=== PATIENT | male | born 2000 | race Hispanic/Latino ===

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

== ENCOUNTER 2024-04-23 14:39 | Emergency (ER) | payer BC ==
--- OUTSIDE RECORDS SUMMARY | 2024-04-23 14:43 | XMS REPORT | Continuity of Care Document ---
Author Name Unknown Address [address] [facility] [address] [place] [address] Organization [facility] Address [address] [place] [address] Care Team Providers Care Stone Gang Sawyer Name Role Phone NADER GALLAGHER Attending Clinician Unavailab cason LAB90 Attending Clinician Unavailable DANETTE CONLEY Attending Clinician Unavailable MONIKA BUCHANAN Attending Clinician Unavailable PATRICK GRIFFIN Attending Clinician Unavailable Nurse, Clau Dietrich Attending Clinician Unavailable Patrick Griffin MD Attending Clinician [phone] Anisha De Jesus MD Attending Clinician [phone] EFFIE LEVINE Attending Clinician Unavailable DEREK ACUNA Attending Clinician Unavailable WINIFRED NASCIMENTO Attending Clinician Unavailab SHANTANU Fofana Attending Clinician UnavailBENITA Chiu Attending Clinician SULEIMAN Natarajan Attending Clinician Unavailable NO PHYSICIAN, . Attending Clinician Unavailable BENITA BAH Admitting Clinician SULEIMAN Natarajan Admitting Clinician Unavailable Payers Payer Name Policy Type Policy Number Effective Date Expirati on Date Source [facility] 2 [id number] 2022 00:00:00 [facility] [id number] [facility] [id number] 2018 00:00:00 Problems Condition Name Condition Details Condition Category Status Onset Date Resolution Date Last Treatment Date Treating Clinician Comments Source No known active problems No known active problems Disease [facility] [id number] Cyst of epididymis determined by ultrasound Problem [facility] Allergies, Adverse Reactions, Alerts Allergy Name Allergy Type Status Severity Reaction(s) Onset Date Inactive Date Treating Clinician Comments Source NO KNOWN ALLERGIE S Drug Class Active [facility] Social History Social Habit Start Date Stop Date Quantity Comments Source Sexual orientation 2023-09-26 15:46:40 Heterosexual (finding) Dorita Solitario - External History of Tobacco Use [facility] Gender identity Mikayla Solitario - External Alcoholic beverage intake 2023-12-09 00:00:00 2023-12-09 00:00:00 Lifetime non-drinker (finding) Dorita Solitario - External Alcohol intake 2022-12-20 00:00:00 2022-12-20 00:00:00 Lifetime non-drinker (finding) Dorita Solitario - External Tobacco use and exposure 2022-09-27 00:00:00 2022-09-27 00:00:00 Smokeless tobacco non-user Dorita Solitario - External History of Social function 2022-09-27 00:00:00 2022-09-27 00:00:00 Dorita Solitario - External Sex 2022-08-30 14:31:55 2022-08-30 14:31:55 Male (finding) Dorita Solitario - External Sex assigned at 2002 00:00:00 2000 00:00:00 M Dorita Solitario - External Smoking Status Start Date Stop Date Source Never smoked tobacco Dorita Solitario - External Medications Ordered Medication Name Filled Medication Name Start Date Stop Date Current Medication? Ordering Clinician Indication Dosage Frequency Signature (SIG) Comments Components Source Triamcinolo ne Acetonide 0.1 % apply externally Cream 2022-02 00:00: 00 01-18 05:59 :00 No [id number] Apply to area nightly. Dorita Solitario - Externa l Zenatane 30 MG oral Capsule 2023-1 0-16 00:00: 00 12-08 00:00 :00 No Dorita Seybold - Externa l permethrin 5 % cream 2017-02 00:00: 00 Yes AAA qhs head to toe and leave overnight, rinse in the am just for one treatment, repeat again in 1 week [facility] hydrocortis one 2.5 % cream 2017-02 00:00: 00 Yes Apply to area(s) 3 (three) times daily. As needed for itch [facility] adapalene-b enzoyl peroxide (EPIDUO FORTE) 0.3-2.5 % GlwP 2017-02 00:00: 00 Yes 1{dose} Apply 1 Dose to area(s) at bedtime. AAA qhs for acne [facility] Minocycline HCl 50 MG Minocycline HCl 50 MG No 1{capsu le} QD Minocyclin e HCl 50 MG Immunizations Ordered Immunization Name Filled Immunization Name Date Status Comments Source [facility] 2019-07-16 00:00:00 Completed [facility] 2019-04-05 00:00:00 Completed [facility] HPV9 2019-04-05 00:00:00 Completed [facility] Meningococcal Polysaccharide (groups A, C, Y and W-135) conjugate vaccine (MCV4P) 2018-12-31 00:00:00 Completed [facility] Meningococcal B, OMV 2018-12-31 00:00:00 Completed [facility] HPV9 2018-12-31 00:00:00 Completed [facility] Meningococcal Polysaccharide (groups A, C, Y and W-135) conjugate vaccine (MCV4P) 2018-12-31 00:00:00 Completed [facility] Meningococcal B, OMV 2018-12-31 00:00:00 Completed [facility] HPV9 2018-12-31 00:00:00 Completed [facility] Influenza Virus Vaccine Quad .5 mL IM 6+ MO 2018-12-08 00:00:00 Completed [facility] Influenza Virus Vaccine Quad .5 mL IM 6+ MO 2018-12-08 00:00:00 Completed [facility] Influenza Virus Vaccine Quad IM 6-35 MO 2018-01-20 00:00:00 Completed [facility] Influenza Virus Vaccine Quad .5 mL IM 6+ MO 2018-01-20 00:00:00 Completed [facility] Influenza Virus Vaccine Quad IM 6-35 MO 2018-01-20 00:00:00 Completed [facility] Influenza Virus Vaccine Quad .5 mL IM 6+ MO 2018-01-20 00:00:00 Completed [facility] Meningococcal Polysaccharide (groups A, C, Y and W-135) conjugate vaccine (MCV4P) 2014-10-10 00:00:00 Completed [facility] Meningococcal Polysaccharide (groups A, C, Y and W-135) conjugate vaccine (MCV4P) 2014-10-10 00:00:00 Completed [facility] DTAP 2014-10-05 00:00:00 Completed [facility] DTAP 2014-10-05 00:00:00 Completed [facility] DTAP 2007-03-23 00:00:00 Completed [facility] HEPATITIS A 2007-03-23 00:00:00 Completed [facility] Polio (IPV/OPV) 2007-03-23 00:00:00 Completed [facility] Proquad (MMR/VARICELLA) 2007-03-23 00:00:00 Completed [facility] DTAP 2007-03-23 00:00:00 Completed [facility] HEPATITIS A 2007-03-23 00:00:00 Completed [facility] Polio (IPV/OPV) 2007-03-23 00:00:00 Completed [facility] Proquad (MMR/VARICELLA) 2007-03-23 00:00:00 Completed [facility] HEPATITIS A 2005-10-01 00:00:00 Completed [facility] HEPATITIS A 2005-10-01 00:00:00 Completed [facility] Influenza Virus Vaccine Quad IM 6-35 MO 2005-01-16 00:00:00 Completed [facility] Influenza Virus Vaccine Quad IM 6-35 MO 2005-01-16 00:00:00 Completed [facility] Pneumococcal 13 Conjugate, PCV13 (Prevnar 13) 2004-11-16 00:00:00 Completed [facility] Proquad (MMR/VARICELLA) 2004-11-16 00:00:00 Completed [facility] Pneumococcal 13 Conjugate, PCV13 (Prevnar 13) 2004-11-16 00:00:00 Completed [facility] Proquad (MMR/VARICELLA) 2004-11-16 00:00:00 Completed [facility] DTAP 2003-11-12 00:00:00 Completed [facility] DTAP 2003-11-12 00:00:00 Completed [facility] HIB 4 Dose Schedule 2003-11-10 00:00:00 Completed [facility] HIB 4 Dose Schedule 2003-11-10 00:00:00 Completed [facility] DTAP 2003-03-24 00:00:00 Completed [facility] HIB 4 Dose Schedule 2003-03-24 00:00:00 Completed [facility] Hep B, Adol or Pedi Dosage 2003-03-24 00:00:00 Completed [facility] Pneumococcal 13 Conjugate, PCV13 (Prevnar 13) 2003-03-24 00:00:00 Completed [facility] DTAP 2003-03-24 00:00:00 Completed [facility] HIB 4 Dose Schedule 2003-03-24 00:00:00 Completed [facility] Hep B, Adol or Pedi Dosage 2003-03-24 00:00:00 Completed [facility] Pneumococcal 13 Conjugate, PCV13 (Prevnar 13) 2003-03-24 00:00:00 Completed [facility] DTAP 2002 00:00:00 Completed [facility] Pneumococcal 13 Conjugate, PCV13 (Prevnar 13) 2002 00:00:00 Completed [facility] Polio (IPV/OPV) 2002 00:00:00 Completed [facility] DTAP 2002 00:00:00 Completed [facility] Pneumococcal 13 Conjugate, PCV13 (Prevnar 13) 2002 00:00:00 Completed [facility] Polio (IPV/OPV) 2002 00:00:00 Completed [facility] Polio (IPV/OPV) 2002 00:00:00 Completed [facility] Polio (IPV/OPV) 2002 00:00:00 Completed [facility] DTAP 2002 00:00:00 Completed [facility] Pneumococcal 13 Conjugate, PCV13 (Prevnar 13) 2002 00:00:00 Completed [facility] Polio (IPV/OPV) 2002 00:00:00 Completed [facility] DTAP 2002 00:00:00 Completed [facility] Pneumococcal 13 Conjugate, PCV13 (Prevnar 13) 2002 00:00:00 Completed [facility] Polio (IPV/OPV) 2002 00:00:00 Completed [facility] HIB 4 Dose Schedule 2002 00:00:00 Completed [facility] Hep B, Adol or Pedi Dosage 2002 00:00:00 Completed [facility] HIB 4 Dose Schedule 2002 00:00:00 Completed [facility] Hep B, Adol or Pedi Dosage 2002 00:00:00 Completed [facility] HIB 4 Dose Schedule 2002 00:00:00 Completed [facility] Hep B, Adol or Pedi Dosage 2002 00:00:00 Completed [facility] HIB 4 Dose Schedule 2002 00:00:00 Completed [facility] Hep B, Adol or Pedi Dosage 2002 00:00:00 Completed [facility] HPV 9 (Human Papillomavirus) Unknown Completed Dorita pyle - External HPV 9 (Human Papillomavirus) Unknown Completed Dorita pyle - External Influenza Virus Vaccine, No Preserv, age 6 months and up Unknown Completed Dorita jaquez - External Influenza Virus Vaccine, Split, Preservative Free, up to age 3 Unknown Completed Dorita Feliciano External Meningococcal Vaccine- Conjugate(Menactra) Unknown Completed Dorita Feliciano External MMR- Measles, Mumps, Rubella Unknown Completed Dorita Solitario - External Bexsero (Meningococcal Group B) Unknown Completed Dorita Feliciano External Meningococcal Vaccine- Conjugate(Menactra) Unknown Completed Dorita jaquez - External Pneumococcal Vaccine, Conjugate 13 Unknown Completed Dorita Feliciano External Polio Vaccine Unknown Completed Dorita Feliciano External IPV- Inactivated Polio Vaccine Unknown Completed Dorita Woodardybold - External MMR/Varicella (ProQuad) [facility]ine [facility] Completed Alvarado coleen Seybold - External DTaP Unknown Completed Dorita pardo - External Hepatitis B, Adolescent Or Pediatric Unknown [facility] HEPATITIS A- PEDI/ADOL Unknown [facility] - [facility] Tetanus Toxoid/HIB Unknown Completed Thierry gonzales Seybold - External HPV 9 (Human Papillomavirus) Unknown Completed [facility] - External HPV 9 (Human Papillomavirus) Unknown Completed [facility] - External Influenza Virus Vaccine, No Preserv, age 6 months and up Unknown Completed [facility] eybold - External Influenza Virus Vaccine, Split, Preservative Free, up to age 3 Unknown Completed [facility] - External Meningococcal Vaccine- Conjugate(Menactra) Unknown Completed [facility] eybold - External MMR- Measles, Mumps, Rubella Unknown [facility] Bexsero (Meningococcal Group B) Unknown Completed [facility] - External Pneumococcal Vaccine, Conjugate 13 Unknown Com[facility] - External Polio Vaccine Unknown Completed [facility] - External IPV- Inactivated Polio Vaccine Unknown Com[facility] - External MMR/Varicella (ProQuad) Unknown Com[facility] - External Varicella Vaccine Unknown Completed Alvarado coleen Seybold - External DTaP Unknown Completed Dorita pardo - External Hepatitis B, Adolescent Or Pediatric Unknown Completed Dorita ybold - External HEPATITIS A- PEDI/ADOL Unknown [facility] Tox[facility]/HIB Unknown Completed [facility]ales [facility] - External HPV 9 (Human Papillomavirus) Unknown Completed [facility] - External HPV 9 (Human Papillomavirus) Unknown Completed Dorita [facility] - External Influenza Virus Vaccine, No Preserv, age 6 months and up Unknown Completed [facility] eybold - External Influenza Virus Vaccine, Split, Preservative Free, up to age 3 Unknown Com[facility] - External Meningococcal Vaccine- Conjugate(Menactra) Unknown Completed [facility] eybold - External MMR- Measles, Mumps, Rubella Unknown Com[facility] - External Bexsero (Meningococcal Group B) Unknown Com[facility] - External Pneumococcal Vaccine, Conjugate 13 Unknown Completed Dorita Richold - External Polio Vaccine Unknown Completed Dorita Solitario - External IPV- Inactivated Polio Vaccine Unknown Completed Dorita [facility] - External MMR/Varicella (ProQuad) Unknown Completed Dorita [facility] - External Varicella Vaccine Unknown Completed Alvarado galvin Seybold - External DTaP Unknown Completed Dorita Viera bold - External Hepatitis B, Adolescent Or Pediatric Unknown Completed Dorita Solitario - External HEPATITIS A- PEDI/ADOL Unknown Completed Dorita Solitario - External Tetanus Toxoid/HIB Unknown Completed Thierry gonzales Seybold - External Vital Signs Vital Name Observation Time Observation Value Comments S ource Systolic blood pressure 2022-12-20 20:21:00 106 mm[Hg] Dorita Seybo ld - External Diastolic blood pressure 2022-12-20 20:21:00 56 mm[Hg] Dorita Woodardybo ld - External Heart rate 2022-12-20 20:21:00 71 /min Kelse y Seybold - External Body temperature 2022-12-20 20:21:00 36.39 Kalpana Dorita Seybold - External Respiratory rate 2022-12-20 20:21:00 14 /min Dorita Seybold - External Body height 2022-12-20 20:21:00 162.6 cm Mikayla ey Seybold - External Body weight 2022-12-20 20:21:00 62.143 kg Mikayla ey Seybold - External BMI 2022-12-20 20:21:00 23.52 kg/m2 Mikayla ey Seybold - External Systolic blood pressure 2022-09-27 21:19:00 90 mm[Hg] Dorita Seybo ld - External Diastolic blood pressure 2022-09-27 21:19:00 58 mm[Hg] Dorita Seybo ld - External Heart rate 2022-09-27 21:19:00 92 /min Kelse y Seybold - External Body temperature 2022-09-27 21:19:00 36.61 Kalpana Dorita Seybold - External Respiratory rate 2022-09-27 21:19:00 20 /min Dorita Seybold - External Body height 2022-09-27 21:19:00 162.6 cm Mikayla ey Seybold - External Body weight 2022-09-27 21:19:00 59.966 kg Mikayla ey Seybold - External BMI 2022-09-27 21:19:00 22.69 kg/m2 Mikayla Solitario - External Oxygen saturation in Arterial blood by Pulse oximetry 2022-09-27 21:19:00 98 /min Dorita Galvan ld - External height 2022-08-21 10:15:00 63 [in_i] Commo n [facility] weight 2022-08-21 10:15:00 138 [lb_av] Comm on [facility] temperature 2022-08-21 10:15:00 98.2 [degF] Com mon [facility] bmi 2022-08-21 10:15:00 24.44 kg/m2 Comm on [facility] oximetry 2022-08-21 10:15:00 100 % Commo n [facility] respiratory rate 2022-08-21 10:15:00 18 /min [facility] blood pressure systolic 2022-08-21 10:15:00 110 mm[Hg] [facility] blood pressure diastolic 2022-08-21 10:15:00 68 mm[Hg] [facility] Procedures Procedure Date / Time Performed Performing Clinicia n Source GARDASIL 9 (HPV 9V) VACCINE 2019-07-16 20:38:35 Patrick Griffin [facility] GARDASIL 9 (HPV 9V) VACCINE 2019-04-05 20:03:03 Anisha De Jesus [facility] Encounters Start Date/Time End Date/Time Encounter Type Admission Type Attending Clinicians Care Facility Care Department Encounter ID Source 2023-07-08 14:45:00 Outpatient STLC STLC [id number] [facility] 2022-08-21 09:44:00 Outpatient STLMLC STLMLC [id number] [facility] 2021-06-13 14:30:03 Outpatient STLC STLC [id number] [facility] 2021-03-14 13:56:20 Outpatient STLMLC STLMLC [id number] [facility] 2021-03-14 12:30:25 Outpatient STLMLC STLMLC [id number] [facility] 2024-01-09 00:00:00 2024-01-09 00:00:00 Outpatient NADER GALLAGHER DORITA UMANZOR [id number] [facility] 2023-12-09 11:30:00 2023-12-09 11:30:00 Outpatient NADER GALLAGHER DORITA UMANZOR [id number] [facility] 2023-09-26 16:30:00 2023-09-26 16:30:00 Outpatient LAB90 DORITA UMANZOR [id number] [facility] 2023-09-26 16:00:00 2023-09-26 16:00:00 Outpatient DANETTE CONLEY DORITA UMANZOR [id number] [facility] 2023-01-02 08:20:00 2023-01-02 08:20:00 Outpatient LAB90 DORITA UMANZOR [id number] [facility] 2022-12-20 15:30:00 2022-12-20 15:30:00 Outpatient MONIKA BUCHANAN [id number] [facility] 2022-12-05 00:00:00 2022-12-05 00:00:00 Outpatient MONIKA BUCHANAN [id number] [facility] 2022-09-27 17:15:00 2022-09-27 17:15:00 Outpatient LAB90 DORITA UMANZOR [id number] [facility] 2022-09-27 16:30:00 2022-09-27 16:30:00 Outpatient MONIK[facility] BUCHANAN [id number] [facility] 2022-08-21 00:00:00 2022-08-21 00:00:00 OFFICE VISIT NEW PT LEVEL 2 STLMLC STLMLC [id number] [facility] 2019-07-16 15:40:00 2019-07-16 15:40:00 Outpatient PATRICK ANGEL [facility] [id number] [facility] 2019-07-16 15:29:24 2019-07-16 15:34:52 Nurse Visit Nurse, Patrick Gutierrez [facility] [id number] [facility] 2019-04-05 13:47:38 2019-04-05 14:04:47 Nurse Visit Nurse, Anisha Jacobs [facility] [id number] [facility] 2012-09-27 16:30:00 2012-09-27 17:31:00 Emergency ER EFFIE LEVINE [facility] [id number] [facility] 2004-01-29 21:49:00 2004-01-30 01:38:00 Emergency ER ARMANDDEREK [facility] [id number] [facility] 2003-08-05 00:01:00 2003-08-05 02:05:00 Emergency ER WINIFRED NASCIMENTO [facility] [id number] [facility] 2003-07-24 01:21:00 2003-07-24 04:05:00 Emergency ER SHANTANU SALEH [facility] [id number] [facility] 2003-05-17 19:58:00 2003-05-17 22:10:00 Emergency ER WINIFRED NASCIMENTO [facility] [id number] [facility] 2003-01-29 16:30:00 2003-01-30 13:00:00 Inpatient ER BENITA LINDA [facility] [id number] [facility] 2002 07:15:00 2002 09:15:00 Emergency ER WINIFRED NASCIMENTO [facility] [id number] [facility] 2002 07:52:00 2002 14:20:00 Inpatient ER BENITA LINDA [facility] [id number] [facility] 2002 14:13:00 2002 14:13:00 Outpatient EL BENITA LINDA [facility] [id number] [facility] 2002 09:15:00 2002 09:15:00 Outpatient SULEIMAN HUERTA [facility] [id number] [facility] 2002 15:28:00 2002 13:20:00 Inpatient SULEIMAN QUEEN [facility]NEW [id number] [facility] 2002 16:57:00 2002 16:57:00 Outpatient MARLYN DAY, . [facility] [id number] [facility] Notes Date/Time Note Provider Source 2022-09-27 16:23:38 Formatting of this n ote might be different from the original. Patient here to establish care. [facility]
--- NOTE | 2024-04-23 16:38 | ER ---
Nurse's Notes [facility] Name: Bryan Gupta Age: 23 yrs Sex: Male : 2000 Arrival Date: 04/23/2024 Time: 14:39 Bed IW2 Private MD: Diagnosis: Presentation: 04/23 15:02 Chief complaint: Patient states: he started vomiting this morning. patient is also ap3 having intermittent abdominal pain, of which he rates a 4/10 on the pain scale. Coronavirus screen: At this time, the client does not indicate any symptoms associated with coronavirus-19. Ebola Screen: No symptoms or risks identified at this time. Initial Sepsis Screen: Does the patient meet any 2 criteria? HR > 90 bpm. Does the patient have a suspected source of infection? No. Patient's initial sepsis screen is negative. Risk Assessment: Do you want to hurt yourself or someone else? Patient reports no desire to harm self or others. Onset of symptoms was April 23, 2024. 15:02 Method Of Arrival: Ambulatory ap3 15:02 Acuity: RAUL 3 ap3 Triage Assessment: 15:03 General: Appears in no apparent distress. Behavior is calm, cooperative, appropriate ap3 for age. Pain: Complains of pain in abdomen Pain currently is 4 out of 10 on a pain scale. Neuro: Level of Consciousness is awake, alert, obeys commands, Oriented to person, place, time, situation. Cardiovascular: Patient's skin is warm and dry. Respiratory: Airway is patent Respiratory effort is even, unlabored, Respiratory pattern is regular, symmetrical. GI: Reports lower abdominal pain, upper abdominal pain, nausea, vomiting. Historical: - Allergies: 15:03 No Known Allergies; ap3 - Home Meds: 15:03 None [Active]; ap3 - PMHx: 15:03 None; ap3 - PSHx: 15:38 Appendectomy; sb4 - Immunization history:: Adult Immunizations up to date. - Infectious Disease History:: Denies. - Social history:: Smoking status: Patient denies any tobacco usage or history of. Screenin:04 [facility] ED Fall Risk Assessment (Adult) History of falling in the last 3 months, ap3 including since admission No falls in past 3 months (0 pts) Confusion or Disorientation No (0 pts) Intoxicated or Sedated No (0 pts) Impaired Gait No (0 pts) Mobility Assist Device Used No (0 pt) Altered Elimination No (0 pt) Score/Fall Risk Level 0 - 2 = Low Risk Oriented to surroundings, Maintained a safe environment, Educated pt \T\ family on fall prevention, incl call for assistance when getting out of bed, Assessed \T\ reinforced patient's understanding of fall precautions, Hourly rounding (assess needs \T\ fall precautionary measures) done, Used ambulatory aids as needed (educated on \T\ assisted with). Abuse screen: Denies threats or abuse. Nutritional screening: No deficits noted. Tuberculosis screening: No symptoms or risk factors identified. Assessment: 16:24 Reassessment: No changes from previously documented assessment. not in lobby or ll1 restroom when called to exam room for treatment. 16:35 Reassessment: No changes from previously documented assessment. not in lobby or ll1 restroom. Vital Signs: 15:02 BP 126 / 66; Pulse 97; Resp 18; Temp 98.9; Pulse Ox 100% ; Weight 60.33 kg; Height 5 ap3 ft. 4 in. ; Pain 4/10; 15:02 Body Mass Index 22.83 (60.33 kg, 162.56 cm) ap3 15:02 Pain Scale: Adult ap3 ED Course: 14:42 Patient arrived in ED. mr 14:45 Lacy Mckee PA-C is PHCP. sb4 14:45 Cindy Curtis MD is Attending Physician. sb4 15:03 Triage completed. ap3 15:04 Arm band placed on right wrist. ap3 15:50 Radiology exam delayed due to lab results not completed at this time. IV insertion jc4 attempt and/or patient not having appropriate IV at this time. Administered Medications: No medications were administered Outcome: 16:36 Eloped after seeing physician Time discovered patient gone: April 23, 2024 at 16:25 ll1 16:36 Condition: stable 16:37 Patient left the ED. ll1 Signatures: Veronique Almaraz, Ar Joyner mr J CarlosJazmin, RN RN ap3 Marisela Grace RN RN ll1 Lacy Mckee PA-C PA-C sb4 Marco Guo jc4 Corrections: (The following items were deleted from the chart) 16:24 16:22 Patient placed in an exam room, on a stretcher, ll1 ll1
--- NOTE | 2024-04-23 16:38 | EDPHYS ---
Physician Documentation [facility] Name: Bryan Gupta Age: 23 yrs Sex: Male : 2000 Arrival Date: 04/23/2024 Time: 14:39 Bed IW2 Private MD: ED Physician Cindy Curtis HPI: 04/23 15:38 This 23 yrs old Male presents to ER via Ambulatory with complaints of Vomiting.sb4 15:38 The patient presents to the emergency department with nausea, vomiting, abdominal pain. sb4 Onset: The symptoms/episode began/occurred this morning. Possible causes: unknown. The symptoms are aggravated by nothing. The symptoms are alleviated by nothing. Associated signs and symptoms: The patient has no apparent associated signs or symptoms, Pertinent negatives: constipation, diarrhea, fever. The patient has not experienced similar symptoms in the past. The patient has not recently seen a physician. Historical: - Allergies: 15:03 No Known Allergies; ap3 - Home Meds: 15:03 None [Active]; ap3 - PMHx: 15:03 None; ap3 - PSHx: 15:38 Appendectomy; sb4 - Immunization history:: Adult Immunizations up to date. - Infectious Disease History:: Denies. - Social history:: Smoking status: Patient denies any tobacco usage or history of. ROS: 15:38 Constitutional: Negative for fever, chills, and weight loss, sb4 15:38 Abdomen/GI: Positive for abdominal pain, nausea and vomiting, 15:38 All other systems are negative, Exam: 15:38 Constitutional: This is a well developed, well nourished patient who is awake, alert, sb4 and in no acute distress. Head/Face: Normocephalic, atraumatic. Eyes: Extra-ocular motions intact. Periorbital areas with no swelling, redness, or edema. ENT: Mucous membranes moist. Respiratory: No increased work of breathing, no retractions or nasal flaring. Abdomen/GI: Soft, non-tender, no distension. Skin: Warm, dry with normal turgor. Normal color with no rashes, no lesions, and no evidence of cellulitis. 15:38 Cardiovascular: Rate: tachycardic, Rhythm: regular, Vital Signs: 15:02 BP 126 / 66; Pulse 97; Resp 18; Temp 98.9; Pulse Ox 100% ; Weight 60.33 kg; Height 5 ap3 ft. 4 in. ; Pain 4/10; 15:02 Body Mass Index 22.83 (60.33 kg, 162.56 cm) ap3 15:02 Pain Scale: Adult ap3 MDM: 14:47 Medical Screening Exam initiated sb4 16:46 ED course: patient left after my assessment and exam, before diagnostics could be sb4 completed. 03 15:03 Order name: IV Saline Lock sb4 04/23 15:03 Order name: Labs collected and sent sb4 Administered Medications: No medications were administered Disposition: 16:46 Chart complete. sb4 Disposition Summary: 04/23/24 16:37 Eloped Notes: Disposition: after being seen by provider ll1 Reason: unknown ll1 Signatures: Dispatcher [employer] EDJazmin Blair RN RN ap3 Marisela Grace RN RN ll1 Lacy Mckee PA-C PACarlos Manuel sb4 Corrections: (The following items were deleted from the chart) 15:04 15:04 CBC+H.LAB.BRZ ordered. EDMS EDMS 15:04 15:04 COMPREHENSIVE METABOLIC PANEL+C.LAB.BRZ ordered. EDMS EDMS 15:04 15:04 LIPASE+C.LAB.BRZ ordered. EDMS EDMS 15:04 15:04 Urinalysis+U.LAB.BRZ ordered. EDMS EDMS 15:04 15:04 Abdomen Pelvis W Con+CT.RAD.BRZ ordered. EDMS EDMS
[2024-04-23 16:43] VITALS: BP 126/66; TEMP 98.9; O2SAT 100
== END 2024-04-23 16:37 | disposition left against medical advice (07) ==
LOC: ER 14:39
DX: R11.2 Nausea with vomiting, unspecified (principal); R10.9 Unspecified abdominal pain
CPT/HCPCS: 99281

== ENCOUNTER 2024-07-02 23:23 | Emergency (ER) | payer BC ==
--- OUTSIDE RECORDS SUMMARY | 2024-07-02 23:27 | XMS REPORT | Continuity of Care Document ---
Author Name Unknown Address [address] [facility] [address] [place] [address] [facility] Address [address] [facility] [address] [place] [address] Care Team Providers Care Machine Hoop Maker Name Role Phone LOWELL KEARNEY Attending Clinician Unavailable NADER GALLAGHER Attending Clinician Unavailab le LAB90 Attending Clinician Unavailable DANETTE CONLEY Attending Clinician Unavailable MONIKA BUCHANAN Attending Clinician Unavailable PATRICK GRIFFIN Attending Clinician Unavailable Nurse, Clau Dietrich Attending Clinician Unavailable Patrick Griffin MD Attending Clinician [phone] Anisha De Jesus MD Attending Clinician [phone] EFFIE LEVINE Attending Clinician Unavailable DEREK ACUNA Attending Clinician Unavailable WINIFRED NASCIMENTO Attending Clinician Unavailab SHANTANU Fofana Attending Clinician UnavailBENITA Chiu Attending Clinician SULEIMAN Natarajan Attending Clinician Unavailable NO PHYSICIAN, . Attending Clinician Unavailable BENITA BAH Admitting Clinician SULEIMAN Natarajan Admitting Clinician Unavailable Payers Payer Name Policy Type Policy Number Effective Date Expirati on Date Source [facility] 2 [id number] 2022 00:00:00 [facility] 6 [id number] [facility] [id number] 2018 00:00:00 Problems Condition Name Condition Details Condition Category Status Onset Date Resolution Date Last Treatment Date Treating Clinician Comments Source No known active problems No known active problems Disease [facility] [id number] Cyst of epididymis determined by ultrasound Problem [facility] Allergies, Adverse Reactions, Alerts Allergy Name Allergy Type Status Severity Reaction(s) Onset Date Inactive Date Treating Clinician Comments Source NO KNOWN ALLERGIE S Drug Class Active [facility] Social History Social Habit Start Date Stop Date Quantity Comments Source Sexual orientation 2023-09-26 15:46:40 Heterosexual (finding) Dorita Solitario - External History of Tobacco Use [facility] Gender identity Mikayla Solitario - External Alcoholic [...] 2022-02 00:00: 00 01-18 05:59 :00 No [id number] Apply to area nightly. Dorita Solitario - Externa l Zenatane 30 MG oral Capsule 2022-02 0-16 00:00: 00 12-08 00:00 :00 No Dorita Seybold - Externa l permethrin 5 % cream 2017-02 00:00: 00 Yes [facility] qhs head to toe and leave overnight, rinse in the am just for one treatment, repeat again in 1 week [facility] hydrocortis one 2.5 % cream 2017-02 00:00: 00 Yes Apply to area(s) 3 (three) times daily. As needed for itch [facility] adapalene-b enzoyl peroxide (EPIDUO FORTE) 0.3-2.5 % GlwP 2017-02 00:00: 00 Yes 1{dose} Apply 1 Dose to area(s) at bedtime. AAA qhs for acne [facility] Minocycline HCl 50 MG Minocycline HCl 50 MG No 1{capsu le} QD Minocyclin e HCl 50 MG Immunizations Ordered Immunization Name Filled Immunization Name Date Status Comments Source [facility] 2019-07-16 00:00:00 Completed [facility] HPV9 2019-04-05 00:00:00 Completed [facility] HPV9 2019-04-05 00:00:00 Completed [facility] Meningococcal Polysaccharide (groups A, C, Y and W-135) conjugate vaccine (MCV4P) 2018-12-31 00:00:00 Completed [facility] Meningococcal B, OMV 2018-12-31 00:00:00 Completed [facility] HPV9 2018-12-31 00:00:00 Completed [facility] Meningococcal Polysaccharide (groups A, C, Y and W-135) conjugate vaccine (MCV4P) 2018-12-31 00:00:00 Completed [facility] Meningococcal B, OMV 2018-12-31 00:00:00 Completed [facility] HPV9 2018-12-31 00:00:00 Completed [facility] Influenza Virus Vaccine Quad .5 mL IM 6+ MO 2018-12-08 00:00:00 Completed [facility] Influenza Virus Vaccine Quad .5 mL IM 6+ MO 2018-12-08 00:00:00 Completed [facility] Influenza Virus Vaccine Quad IM 6-35 MO 2018-01-20 00:00:00 Completed [facility] Influenza Virus Vaccine Quad .5 mL IM 6+ MO 2018-01-20 00:00:00 Completed [facility] Influenza Virus Vaccine Quad IM 6-35 MO 2018-01-20 00:00:00 Completed [facility] Influenza Virus Vaccine Quad .5 mL IM 6+ MO 2018-01-20 00:00:00 Completed [facility] Meningococcal Polysaccharide (groups A, C, Y and W-135) conjugate vaccine (MCV4P) 2014-10-10 00:00:00 Completed [facility] Meningococcal Polysaccharide (groups A, C, Y and W-135) conjugate vaccine (MCV4P) 2014-10-10 00:00:00 Completed [facility] DTAP 2014-10-05 00:00:00 Completed [facility] DTAP 2014-10-05 00:00:00 Completed [facility] DTAP 2007-03-23 00:00:00 Completed [facility] HEPATITIS A 2007-03-23 00:00:00 Completed [facility] Polio (IPV/OPV) 2007-03-23 00:00:00 Completed [facility] Proquad (MMR/VARICELLA) 2007-03-23 00:00:00 Completed [facility] DTAP 2007-03-23 00:00:00 Completed [facility] HEPATITIS A 2007-03-23 00:00:00 Completed [facility] Polio (IPV/OPV) 2007-03-23 00:00:00 Completed [facility] Proquad (MMR/VARICELLA) 2007-03-23 00:00:00 Completed [facility] HEPATITIS A 2005-10-01 00:00:00 Completed [facility] HEPATITIS A 2005-10-01 00:00:00 Completed [facility] Influenza Virus Vaccine Quad IM 6-35 MO 2005-01-16 00:00:00 Completed [facility] Influenza Virus Vaccine Quad IM 6-35 MO 2005-01-16 00:00:00 Completed [facility] Pneumococcal 13 Conjugate, PCV13 (Prevnar 13) 2004-11-16 00:00:00 Completed [facility] Proquad (MMR/VARICELLA) 2004-11-16 00:00:00 Completed [facility] Pneumococcal 13 Conjugate, PCV13 (Prevnar 13) 2004-11-16 00:00:00 Completed [facility] Proquad (MMR/VARICELLA) 2004-11-16 00:00:00 Completed [facility] DTAP 2003-11-12 00:00:00 Completed [facility] DTAP 2003-11-12 00:00:00 Completed [facility] HIB 4 Dose Schedule 2003-11-10 00:00:00 Completed [facility] HIB 4 Dose Schedule 2003-11-10 00:00:00 Completed [facility] DTAP 2003-03-24 00:00:00 Completed [facility] HIB 4 Dose Schedule 2003-03-24 00:00:00 Completed [facility] Hep B, Adol or Pedi Dosage 2003-03-24 00:00:00 Completed [facility] Pneumococcal 13 Conjugate, PCV13 (Prevnar 13) 2003-03-24 00:00:00 Completed [facility] DTAP 2003-03-24 00:00:00 Completed [facility] HIB 4 Dose Schedule 2003-03-24 00:00:00 Completed [facility] Hep B, Adol or Pedi Dosage 2003-03-24 00:00:00 Completed [facility] Pneumococcal 13 Conjugate, PCV13 (Prevnar 13) 2003-03-24 00:00:00 Completed [facility] DTAP 2002 00:00:00 Completed [facility] Pneumococcal 13 Conjugate, PCV13 (Prevnar 13) 2002 00:00:00 Completed [facility] Polio (IPV/OPV) 2002 00:00:00 Completed [facility] DTAP 2002 00:00:00 Completed [facility] Pneumococcal 13 Conjugate, PCV13 (Prevnar 13) 2002 00:00:00 Completed [facility] Polio (IPV/OPV) 2002 00:00:00 Completed [facility] Polio (IPV/OPV) 2002 00:00:00 Completed [facility] Polio (IPV/OPV) 2002 00:00:00 Completed [facility] DTAP 2002 00:00:00 Completed [facility] Pneumococcal 13 Conjugate, PCV13 (Prevnar 13) 2002 00:00:00 Completed [facility] Polio (IPV/OPV) 2002 00:00:00 Completed [facility] DTAP 2002 00:00:00 Completed [facility] Pneumococcal 13 Conjugate, PCV13 (Prevnar 13) 2002 00:00:00 Completed [facility] Polio (IPV/OPV) 2002 00:00:00 Completed [facility] HIB 4 Dose Schedule 2002 00:00:00 Completed [facility] Hep B, Adol or Pedi Dosage 2002 00:00:00 Completed [facility] HIB 4 Dose Schedule 2002 00:00:00 Completed [facility] Hep B, Adol or Pedi Dosage 2002 00:00:00 Completed [facility] HIB 4 Dose Schedule 2002 00:00:00 Completed [facility] Hep B, Adol or Pedi Dosage 2002 00:00:00 Completed [facility] HIB 4 Dose Schedule 2002 00:00:00 Completed [facility] Hep B, Adol or Pedi Dosage 2002 00:00:00 Completed [facility] Tetanus Toxoid/HIB Unknown Completed Thierry Solitario - External HPV 9 (Human Papillomavirus) Unknown [...] MMR- Measles, Mumps, Rubella Unknown Completed Dorita Feliciano External Bexsero (Meningococcal Group B) Unknown Completed Dorita Feliciano External Meningococcal Vaccine- Conjugate(Menactra) Unknown Completed Dorita Bejarano Pneumococcal Vaccine, Conjugate 13 Unknown Completed Dorita Seybold - External Polio Vaccine [facility]- In[facility]ine [facility] M[facility]/Varicella (ProQuad) Unknown [facility] Varicella [facility]ine Unknown [facility] DTaP Unknown Completed Dorita Viera [facility] - External Hepatitis B, Adolescent Or Pediatric Unknown [facility] HEPATITIS A- PEDI/ADOL Unknown [facility] Tetanus Toxoid/HIB Unknown [facility] (Human Papillomavirus) Unknown [facility] - External HPV 9 (Human Papillomavirus) Unknown Completed [facility] - External Influenza Virus Vaccine, No Preserv, age 6 months and up Unknown Completed [facility] eybold - External Influenza Virus Vaccine, Split, Preservative Free, up to age 3 Unknown [facility] Meningococcal Vaccine- Conjugate(Menactra) Unknown Completed [facility] eybold - External MMR- Measles, Mumps, Rubella Unknown [facility] Bexsero (Meningococcal Group B) Unknown Completed [facility] - External Pneumococcal Vaccine, Conjugate 13 Unknown [facility] Polio Vaccine Unknown [facility] IPV- Inactivated Polio Vaccine Unknown [facility] MMR/Varicella (ProQuad) Unknown [facility] Varicella Vaccine Unknown Completed Alvarado coleen Seybold - External DTaP Unknown Completed Dorita pardo - External Hepatitis B, Adolescent Or Pediatric Unknown [facility] HEPATITIS A- PEDI/ADOL Unknown [facility] Tetanus Toxoid/HIB Unknown Completed Thierry gonzales Seybold - External HPV 9 (Human Papillomavirus) Unknown [facility] HPV 9 (Human Papillomavirus) Unknown Completed [facility]ita [facility] - External Influenza Virus Vaccine, No Preserv, age 6 months and up Unknown Completed [facility] eybold - External Influenza Virus Vaccine, Split, Preservative Free, up to age 3 Unknown [facility] Meningococcal Vaccine- Conjugate(Menactra) Unknown Completed [facility] eybold - External MMR- Measles, Mumps, Rubella Unknown [facility] Bexsero (Meningococcal Group B) Unknown Completed Dorita Solitario - External Pneumococcal Vaccine, Conjugate 13 Unknown Completed Dorita Solitario - External Polio Vaccine Unknown Completed Dorita Solitario - External IPV- Inactivated Polio Vaccine Unknown Completed Dorita Solitario - External MMR/Varicella (ProQuad) Unknown Completed Dorita Richold - External Varicella Vaccine Unknown Completed Alvarado valderramacoleen Woodard[facility]bold - External DTaP Unknown Completed Dorita [facility] edvin - External Hepatitis B, Adolescent Or Pediatric Unknown Completed Dorita Solitario - External HEPATITIS A- PEDI/ADOL Unknown Completed Dorita Richold - External Vital Signs Vital Name Observation [...] Body weight 2022-09-27 21:19:00 59.966 kg Mikayla horne Seybold - External BMI 2022-09-27 21:19:00 22.69 kg/m2 Mikayla horne Seybjacoby - External Oxygen saturation in Arterial blood by Pulse oximetry 2022-09-27 21:19:00 98 /min Dorita Galvan ld - External height 2022-08-21 10:15:00 63 [in_i] Commo n [facility] weight 2022-08-21 10:15:00 138 [lb_av] Comm on [facility] temperature 2022-08-21 10:15:00 98.2 [degF] Com mon [facility] bmi 2022-08-21 10:15:00 24.44 kg/m2 Comm on [facility] oximetry 2022-08-21 10:15:00 100 % Commo n [facility] respiratory rate 2022-08-21 10:15:00 18 /min [facility] blood pressure systolic 2022-08-21 10:15:00 110 mm[Hg] [facility] blood pressure diastolic 2022-08-21 10:15:00 68 mm[Hg] [facility] Procedures Procedure Date / Time Performed Performing Clinicia n Source GARDASIL 9 (HPV 9V) VACCINE 2019-07-16 20:38:35 Patrick Griffin [facility] GARDASIL 9 (HPV 9V) VACCINE 2019-04-05 20:03:03 Anisha De Jesus [facility] Encounters Start Date/Time End Date/Time Encounter Type Admission Type Attending Clinicians Care Facility Care Department Encounter ID Source 2023-07-08 14:45:00 [facility] [id number] [facility] 2022-08-21 09:44:00 Outpatient [facility] [id number] [facility] 2021-06-13 14:30:03 [facility] [id number] [facility] 2021-03-14 13:56:20 Outpatient [facility] [id number] [facility] 2021-03-14 12:30:25 Outpatient [facility] [id number] [facility] 2024-05-26 08:30:00 2024-05-26 08:30:00 Outpatient CAIO LOWELL DORITA UMANZOR [id number] [facility] 2024-01-09 00:00:00 2024-01-09 00:00:00 Outpatient NADER GALLAGHER [id number] [facility] 2023-12-09 11:30:00 2023-12-09 11:30:00 Outpatient NADER GALLAGHER [id number] [facility] 2023-09-26 16:30:00 2023-09-26 16:30:00 Outpatient LAB90 DORITA UMANZOR [id number] [facility] 2023-09-26 16:00:00 2023-09-26 16:00:00 Outpatient YAEL DANETTE DORITA UMANZOR [id number] [facility] 2023-01-02 08:20:00 2023-01-02 08:20:00 Outpatient LAB90 DORITA UMANZOR [id number] [facility] 2022-12-20 15:30:00 2022-12-20 15:30:00 Outpatient MONIKA BUCHANAN [id number] [facility] 2022-12-05 00:00:00 2022-12-05 00:00:00 Outpatient MONIKA BUCHANAN [id number] [facility] 2022-09-27 17:15:00 2022-09-27 17:15:00 Outpatient LAB90 DORITA UMANZOR [id number] [facility] 2022-09-27 16:30:00 2022-09-27 16:30:00 Outpatient MONIKA BUCHANAN [id number] [facility] 2022-08-21 00:00:00 2022-08-21 00:00:00 OFFICE VISIT NEW PT LEVEL 2 [facility] [id number] [facility] 2019-07-16 15:40:00 2019-07-16 15:40:00 Outpatient R SHEEBA, PATRICK [facility] [id number] [facility] 2019-07-16 15:29:24 2019-07-16 15:34:52 Nurse Visit Nurse, Patrick Gutierrez [facility] [id number] [facility] 2019-04-05 13:47:38 2019-04-05 14:04:47 Nurse Visit Nurse, Anisha Jacobs [facility] [id number] [facility] 2012-09-27 16:30:00 2012-09-27 17:31:00 Emergency ER ABNER EFFIE [facility] [id number] [facility] 2004-01-29 21:49:00 2004-01-30 01:38:00 Emergency ER ARMANDDEREK [facility] [id number] [facility] 2003-08-05 00:01:00 2003-08-05 02:05:00 Emergency ER WINIFRED NASCIMENTO [facility] [id number] [facility] 2003-07-24 01:21:00 2003-07-24 04:05:00 Emergency ER SHANTANU SALEH [facility] [id number] [facility] 2003-05-17 19:58:00 2003-05-17 22:10:00 Emergency ER WINIFRED NASCIMENTO [facility] [id number] [facility] 2003-01-29 16:30:00 2003-01-30 13:00:00 Inpatient ER BENITA LINDA [facility] PED [id number] [place] [address] 2002 07:15:00 2002 09:15:00 Emergency ER WINIFRED NASCIMENTO [facility] [id number] [facility] 2002 07:52:00 2002 14:20:00 Inpatient ER VALWILMA Latif, AMMINI [facility] [id number] [facility] 2002 14:13:00 2002 14:13:00 Outpatient EL VALLOARYAN Latif, AMMINI [facility] [id number] [facility] 2002 09:15:00 2002 09:15:00 Outpatient SULEIMAN HUERTA [facility] [id number] [facility] 2002 15:28:00 2002 13:20:00 Inpatient NB SULEIMAN JONES [facility] [id number] [facility] 2002 16:57:00 2002 16:57:00 Outpatient EL KAYLEE PHYSICIAN, . [facility] [id number] [facility] Notes Date/Time Note Provider Source 2022-09-27 16:23:38 Formatting of this n ote might be different from the original. Patient here to establish care. T [facility]
[2024-07-03] MEDS ORDERED: TETRACAINE HCL 0.5% 4ML OPTH ONE (00:29)
[2024-07-03] MEDS ORDERED: FLUORESCEIN SODIUM 1 MG/WRAP ONE ×2 (00:29→00:40)
--- NOTE | 2024-07-03 01:01 | ER ---
Nurse's Notes [facility] Name: Bryan Gupta Age: 23 yrs Sex: Male : 2000 Arrival Date: 07/02/2024 Time: 23:23 Bed 23 Private MD: Diagnosis: Injury of conjunctiva and corneal abrasion without foreign body, left eye Presentation: 07/02 23:44 Chief complaint: Patient states: muddy water from a iphone developer got into right eye around iw 11 am , now the other eye is red and swollen and teary also. Coronavirus screen: At this time, the client does not indicate any symptoms associated with coronavirus-19. Risk Assessment: Do you want to hurt yourself or someone else? Patient reports no desire to harm self or others. Onset of symptoms was July 02, 2024. 23:44 Method Of Arrival: Ambulatory iw 23:44 Acuity: RAUL 4 iw 07/03 01:12 Initial Sepsis Screen: Does the patient meet any 2 criteria? No. Patient's initial kl sepsis screen is negative. 01:12 Ebola Screen: Patient negative for fever greater than or equal to 101.5 degrees kl Fahrenheit, and additional compatible Ebola Virus Disease symptoms. Initial Sepsis Screen: Does the patient have a suspected source of infection? No. Patient's initial sepsis screen is negative. Historical: - Allergies: 07/02 23:46 No Known Allergies; iw - Home Meds: 23:46 None [Active]; iw - PMHx: 23:46 None; iw - PSHx: 23:46 Appendectomy; iw - Immunization history:: Adult Immunizations not up to date. - Infectious Disease History:: Denies. - Social history:: Smoking status: Patient denies any tobacco usage or history of. Screenin/17 00:47 [facility] ED Fall Risk Assessment (Adult) History of falling in the last 3 months, kl including since admission No falls in past 3 months (0 pts) Confusion or Disorientation No (0 pts) Intoxicated or Sedated No (0 pts) Impaired Gait No (0 pts) Mobility Assist Device Used No (0 pt) Altered Elimination No (0 pt) Score/Fall Risk Level 0 - 2 = Low Risk Oriented to surroundings, Maintained a safe environment. Abuse screen: Denies threats or abuse. Nutritional screening: No deficits noted. Tuberculosis screening: No symptoms or risk factors identified. Assessment: 00:46 General: Appears uncomfortable, Behavior is calm, cooperative. Pain: Complains of pain kl in right eye and left eye Pain currently is 9 out of 10 on a pain scale. Neuro: No deficits noted. Cardiovascular: No deficits noted. Respiratory: No deficits noted. GI: No deficits noted. No signs and/or symptoms were reported involving the gastrointestinal system. : No deficits noted. No signs and/or symptoms were reported regarding the genitourinary system. EENT: Reports blurred vision pain in right eye and left eye. Derm: No deficits noted. No signs and/or symptoms reported regarding the dermatologic system. Musculoskeletal: No deficits noted. No signs and/or symptoms reported regarding the musculoskeletal system. Vital Signs: 07/02 23:44 BP 133 / 94; Pulse 61; Resp 16; Pulse Ox 100% ; Weight 60.33 kg; Height 5 ft. 4 in. ; iw Pain 7/10; 23:44 Body Mass Index 22.83 (60.33 kg, 162.56 cm) 23:44 Pain Scale: Adult ED Course: 23:26 Patient arrived in ED. gm2 23:41 Rogelio Kaufman DO is Attending Physician. ms3 23:46 Triage completed. 07/03 00:47 Patient has correct armband on for positive identification. kl 00:48 Assist provider with eye exam of both eyes. using slit lamp, Performed by Rogelio quinn DO. 01:00 Yuan Henriquez MD is Referral Physician. ms3 01:12 Patient did not have IV access during this emergency room visit. kl Administered Medications: No medications were administered Medication: 01:11 VIS not applicable for this client. kl Outcome: 01:00 Discharge ordered by . ms3 01:11 Discharged to home ambulatory, 01:11 Condition: improved 01:11 Discharge instructions given to patient, Instructed on discharge instructions, follow up and referral plans. Demonstrated understanding of instructions, follow-up care, medications, Prescriptions given X 1, 01:12 Patient left the ED. Signatures: Tiesha Grace RN Codie Britt RN RN Rogelio Kaufman DO DO ms3 Camille Wilder gm2
--- NOTE | 2024-07-03 01:01 | EDPHYS ---
Physician Documentation [facility] Name: Bryan Gupta Age: 23 yrs Sex: Male : 2000 Arrival Date: 07/02/2024 Time: 23:23 Bed 23 Private MD: ED Physician Rogelio Kaufman HPI: 07/03 03:17 This 23 yrs old Male presents to ER via Ambulatory with complaints of Chemical ms3 Exposure In Eye. 03:17 23-year-old male with no past medical history presents to the emergency department ms3 after getting river water in his right eye. Patient states afterwards he felt as if something was in his eye. Patient states he flushed his eyes out while at home. Patient states he is currently with 6/10 burning pain in his bilateral eyes. Patient denies change in his vision. Historical: - Allergies: 07/02 23:46 No Known Allergies; iw - Home Meds: 23:46 None [Active]; iw - PMHx: 23:46 None; iw - PSHx: 23:46 Appendectomy; iw - Immunization history:: Adult Immunizations not up to date. - Infectious Disease History:: Denies. - Social history:: Smoking status: Patient denies any tobacco usage or history of. ROS: 07/03 03:17 Constitutional: Negative for fever, and chills. Cardiovascular: Negative for chest ms3 pain, and palpitations. Abdomen/GI: Negative for abdominal pain, nausea, vomiting, diarrhea, and constipation, MS/Extremity: Negative for injury and deformity, Eyes: Positive for redness, Negative for blurry vision, Exam: 03:17 Constitutional: This is a well developed, well nourished patient who is awake, alert, ms3 and in no acute distress. Cardiovascular: Regular rate and rhythm with a normal S1 and S2. No gallops, murmurs, or rubs. Normal PMI, no JVD. No pulse deficits. Respiratory: Lungs have equal breath sounds bilaterally, clear to auscultation and percussion. No rales, rhonchi or wheezes noted. No increased work of breathing, no retractions or nasal flaring. Abdomen/GI: Soft, non-tender, with normal bowel sounds. No distension or tympany. No guarding or rebound. No evidence of tenderness throughout. 03:17 Eyes: Periorbital structures: appear normal, Pupils: equal, round, and reactive to light and accomodation, Extraocular movements: no acute changes, Conjunctiva: injected, bilaterally, Corneas: abrasion, that is small, on the left, at 3 o'clock, Anterior chamber: Vital Signs: 07/02 23:44 BP 133 / 94; Pulse 61; Resp 16; Pulse Ox 100% ; Weight 60.33 kg; Height 5 ft. 4 in. ; iw Pain 7/10; 23:44 Body Mass Index 22.83 (60.33 kg, 162.56 cm) iw 23:44 Pain Scale: Adult iw MDM: 23:53 Medical Screening Exam initiated ms3 07/03 03:17 Differential diagnosis: Corneal abrasion of left eye. Corneal ulcer of Acute iritis of ms3 Data reviewed: vital signs, nurses notes, and as a result, I will discharge patient. I considered the following discharge prescriptions or medication management in the emergency department Medications were administered in the Emergency Department. See MAR. Counseling: I had a detailed discussion with the patient and/or guardian regarding the historical points, exam findings, and any diagnostic results supporting the discharge/admit diagnosis, the need for outpatient follow up, to return to the emergency department if symptoms worsen or persist or if there are any questions or concerns that arise at home. Special discussion: I discussed with the patient/guardian in detail that at this point there is no indication for admission to the hospital. It is understood, however, that if the symptoms persist or worsen the patient needs to return immediately for re-evaluation. ED course: Patient's pain improved after tetracaine eyedrops applied. Abrasion noted in the left eye. Abrasion was shown to patient's girlfriend. Patient to follow-up with Dr. Henriquez in 2 to 3 days. Patient understands and agrees with plan. All questions were answered. Return precautions discussed include worsening symptoms, or any other concerns.. 07/02 23:54 Order name: Eye Tray; Complete Time: 00:31 ms3 07/02 23:54 Order name: Fluoresene Opth strip; Complete Time: 00:31 3 07/02 23:54 Order name: Visual Acuity ms3 Administered Medications: No medications were administered Disposition Summary: 07/03/24 01:00 Discharge Ordered Notes: Location: Home ms3 Condition: Stable ms3 Diagnosis - Injury of conjunctiva and corneal abrasion without foreign body, left eye ms3 Followup: ms3 - With: Yuan Henriquez MD - When: 2 - 3 days - Reason: Recheck today's complaints Discharge Instructions: - Discharge Summary Sheet ms3 - Corneal Abrasion, [id number] ms3 Forms: - Work release form kl - Medication Reconciliation Form ms3 - Antibiotic Education ms3 - Prescription Opioid Use ms3 - Patient Portal Instructions ms3 - Leadership Thank You Letter ms3 Prescriptions: - Erythromycin 5 mg/gram (0.5 %) Ophthalmic ointment - apply 1 ribbon OPHTHALMIC route every 8 hours; 3.5 gram; Refills: 0, Product ms3 Selection Permitted Signatures: Tiesha Grace RN RN kl Williams, Irene, RN RN iw Sims, Marcus, DO ms3
[2024-07-03 01:18] VITALS: BP 133/94; O2SAT 100
== END 2024-07-03 01:12 | disposition home or self-care (01) ==
LOC: ER 23:23
DX: S05.02XA Injury of conjunctiva and corneal abrasion without foreign body, left eye, initial encounter (principal)
CPT/HCPCS: 99283